=== PATIENT | female | born 1995 | race Caucasian/White ===

== ENCOUNTER 2024-04-28 10:52 | Emergency (ER) | payer OTHER, SELFPAY ==
[~2024-04-28] VITALS: Ht 162.6 cm; Wt 57.0 kg
[~2024-04-28 10:52] MED LIST: ACET-716 PO; BIOF4GEL4 TOP; IBUP-1022 PO; LIDO5DIS41 TD; NAPR-837 PO
[2024-04-28 11:02] VITALS: TEMP 98
[2024-04-28] MEDS: ACETAMINOPHEN *IV* 1,000 MG in IV 1 EA IV ONE (13:35)
[2024-04-28 13:50] LABS: BASO % 0.2 % (0.0-1.0); EOS % 0.1 % (0.0-3.0); HEMATOCRIT 37.5 % (36.0-47.0); HEMOGLOBIN 12.9 g/dl (12.0-15.5); LYMPH # 1.9 10^3/uL (1.5-5.0); LYMPH % 15.7 % (24.0-44.0); MEAN CORPUSCULAR HGB CONC 34.4 g/dl (32.0-36.5); MEAN CORPUSCULAR VOLUME 78.6 fl (80.0-96.0); MONO # 1.7 10^3/uL (0.0-0.8); MONO % 13.8 % (2.0-8.0); NEUTROPHILS # 8.5 10^3/uL (1.5-8.5); NEUTROPHILS % 69.9 % (36.0-66.0); PLATELET COUNT, AUTOMATED 307 10^3/uL (150-450); RED BLOOD COUNT 4.77 10^6/uL (4.00-5.40); WHITE BLOOD COUNT 12.1 10^3/uL (4.0-10.0)
[2024-04-28 14:16] LABS: HCG, SERUM QUALITATIVE NEGATIVE (NEGATIVE)
[2024-04-28 14:17] LABS: BLOOD UREA NITROGEN 12 MG/DL (9-23); CALCIUM LEVEL 9.8 MG/DL (8.5-10.1); CARBON DIOXIDE LEVEL 22 MMOL/L (20-31); CHLORIDE LEVEL 106 MMOL/L (98-107); CREATININE FOR GFR 0.69 MG/DL (0.55-1.30); GLOMERULAR FILTRATION RATE > 60.0 (>60); GLUCOSE, FASTING 81 MG/DL (60-100); POTASSIUM SERUM 3.6 MMOL/L (3.5-5.1); SODIUM LEVEL 137 MMOL/L (136-145)
[2024-04-28] MEDS ORDERED: ISOVUE-370 76% 100ML VIAL As Ordered ONE (14:23)
[2024-04-28 14:46] LABS: ERYTHROCYTE SEDIMENTATION RATE 77 mm/hr (0-20)
[2024-04-28] MEDS: dexAMETHasone 20MG/5ML VIAL IV ONE (17:08)
[2024-04-28] MEDS: AMPICILLIN SOD/SULBACTAM SOD 1.5 GM in DEXTROSE 5% (D5W) ADV/MINI-BAG 50 ML IV ONE (17:36)
[2024-04-28] MEDS ORDERED: AMOX875T2 PO (18:07)
[2024-04-28 18:15] VITALS: BP 115/65
[2024-04-28 18:17] VITALS: O2SAT 100
== END 2024-04-28 18:32 | disposition home or self-care (01) ==
LOC: M ED 10:52
DX: K04.7 Periapical abscess without sinus (principal); Z79.2 Long term (current) use of antibiotics
CPT/HCPCS: 70491; 80048; 84703; 85025; 85652; 86140; 96365; 96366; 96375; 99285; J0131; J0295; J1100; Q9967